=== PATIENT | female | born 1975 | race Caucasian/White ===

== ENCOUNTER 2019-05-29 05:56 | Day surgery (SDC) | payer OTHER ==
[~2019-05-29] VITALS: Ht 167.6 cm; Wt 72.6 kg
[2019-05-29] MEDS ORDERED: BUPIVACAINE HCL/PF 0.5% (5MG/ML) 10ML ONE (06:04)
[2019-05-29] MEDS ORDERED: SKIN ADHESIVE 0.7 GM EA TOP ONE (06:04)
[2019-05-29] MEDS ORDERED: VASOPRESSIN 20 UNIT/ML 1ML ONE (06:04)
[2019-05-29] MEDS ORDERED: LACTATED RINGERS 1,000 ML IV SCH (06:10)
[2019-05-29 06:29] LABS: UCG SCREEN NEGATIVE
[2019-05-29 06:57] LABS: BASOPHILS % 0.4 % (0.0-2.0); EOSINOPHILS % 2.1 % (0.0-5.0); HEMATOCRIT. 37.3 % (36.0-48.0); HEMOGLOBIN. 12.4 g/dL (12.0-16.0); LYMPHOCYTES % 25.3 % (20.0-50.0); MEAN CORPUSCULAR HEMOGLOBIN 28.5 pg (28.0-32.0); MEAN PLATELET VOLUME 8.1 fl (7.4-10.4); MONOCYTES % 8.9 % (2.0-8.0); NEUTROPHILS % 63.3 % (40.0-76.0); PLATELET 311 x1000/uL (130-400); RED BLOOD CELL COUNT 4.34 mill/uL (4.2-5.4); RED CELL DISTRIBUTION WIDTH 13.6 % (11.6-14.6)
[2019-05-29] MEDS ORDERED: NEOSTIGMINE METHYLSULFATE 1MG/ML 10 ML VIAL ONE (07:01)
[2019-05-29] MEDS ORDERED: FENTANYL CITRATE/PF 50MCG/ML 2ML VIAL ONE (07:01)
[2019-05-29] MEDS ORDERED: ROCURONIUM BROMIDE 10MG/ML VIAL 5ML IV ONE (07:01)
[2019-05-29] MEDS ORDERED: PROPOFOL 200MG/20ML VIAL IV ONE (07:01)
[2019-05-29] MEDS ORDERED: GLYCOPYRROLATE 0.2 MG/ML 2ML VIAL ONE ×2 (07:02→10:12)
[2019-05-29] MEDS ORDERED: MIDAZOLAM HCL 2 MG/2 ML VIAL ONE (07:02)
[2019-05-29] MEDS ORDERED: ONDANSETRON HCL 4MG/2ML INJ ONE (07:03)
[2019-05-29] MEDS ORDERED: DEXAMETHASONE 4MG/ML 1ML VIAL ONE (07:03)
[2019-05-29] MEDS ORDERED: CEFAZOLIN SODIUM 1000MG/VIAL ONE (07:55)
[2019-05-29] MEDS ORDERED: LIDOCAINE HCL/PF 1% 10 MG/ML 5ML VIAL ONE (07:55)
[2019-05-29] MEDS ORDERED: MEPERIDINE HCL/PF 25MG/ML CPJ IV PRN (08:45)
[2019-05-29] MEDS ORDERED: ONDANSETRON HCL 4MG/2ML INJ IV PRN (08:45)
[2019-05-29] MEDS ORDERED: LABETALOL 5MG/ML SYR 20 MG/4 ML SYRINGE IV PRN (08:45)
[2019-05-29] MEDS ORDERED: HYDROMORPHONE HCL/PF 2MG/ML CPJ IV PRN (08:45)
[2019-05-29] MEDS ORDERED: HYDROMORPHONE HCL/PF 2MG/ML (OR) ONE (08:55)
[2019-05-29 11:31] VITALS: BP 119/68
== END 2019-05-29 13:30 | disposition home or self-care (01) ==
LOC: OR 05:56
PROVIDERS: ATTEND Obstetrics & Gynecology
DX: D25.9 Leiomyoma of uterus, unspecified (principal); N92.0 Excessive and frequent menstruation with regular cycle; N80.0 Endometriosis of uterus; N80.9 Endometriosis, unspecified; K66.0 Peritoneal adhesions (postprocedural) (postinfection)
CPT/HCPCS: 36415; 58554; 81025; 85025; 86850; 86900; 86901; 88302; J0690; J1100; J1170; J2175; J2250; J2405; J2704; J2710; J3010; J3490; S2900